=== PATIENT | male | born 1980 | race Asian ===

== ENCOUNTER 2017-07-02 15:35 | Inpatient (IN) | payer OTHER ==
[2017-07-02] MEDS ORDERED: NS 1,000 ML IV ONE (15:49)
[2017-07-02] MEDS ORDERED: ONDANSETRON 4 MG/2 ML VIAL IVP ONE (15:49)
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
[2017-07-02 16:02] LABS: % IMMATURE GRANULYOCYTES 0.5 % (0.0-1.1); ABSOLUTE IMMATURE GRANULOCYTES 0.06 10^3/uL (0.00-0.10); ADD DIFF? NO; ADD MORPH? NO; ADD SCAN? NO; ATYPICAL LYMPHOCYTE FLAG 0 (0-99); FRAGMENT RBC FLAG 0 (0-99); HEMATOCRIT 44.6 % (40.0-51.0); HEMOGLOBIN 15.1 g/dL (13.7-17.5); LEFT SHIFT FLG 0 (0-99); LIPEMIA HEMOLYSIS FLAG 90 (0-99); MEAN CELL HEMOGLOBIN CONCENTR. 33.9 g/dL (32.4-36.7); MEAN CELL VOLUME 85.8 fL (81.5-99.8); MEAN PLATELET VOLUME 9.5 fL (8.7-11.7); PLATELET CLUMPS FLAG 30 (0-99); PLATELET COUNT 263 10^3/uL (150-400); RED CELL DISTRIBUTION WIDTH 12.7 % (11.5-15.2)
[2017-07-02 16:11] LABS: APTT 25.2 SEC (23.0-38.0); INR 1.06 (0.83-1.16); PROTIME(PATIENT) 13.7 SEC (12.0-15.0)
[2017-07-02 16:12] LABS: ANION GAP 15 mEq/L (8-16); CALCIUM 10.1 mg/dL (8.5-10.4); CARBON DIOXIDE 22 mEq/l (22-31); CHLORIDE 99 mEq/L (97-110); CREATININE 1.2 mg/dL (0.7-1.3); ETHANOL SERUM < 10 mg/dL (0-10); GLOMERULAR FILTRATION RATE > 60; GLUCOSE 105 mg/dL (70-100); POTASSIUM 4.1 mEq/L (3.5-5.2); SODIUM 136 mEq/L (134-144)
[2017-07-02] MEDS ORDERED: ONDANSETRON 4 MG/2 ML VIAL IVP PRN (17:08)
[2017-07-02] MEDS ORDERED: NS 1,000 ML IV SCH (17:15)
[2017-07-02] MEDS ORDERED: LORATADINE PO PRN (17:19)
[2017-07-02] MEDS ORDERED: PSEUDOEPHEDRINE PO PRN (17:19)
[2017-07-02] MEDS ORDERED: NS 500 ML IV ONE (17:56)
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
[2017-07-02 19:02] LABS: COLOR YELLOW; LEUKOCYTE ESTERASE,URINE NEGATIVE (NEGATIVE); NITRITE,URINE NEGATIVE (NEGATIVE)
[2017-07-02] MEDS: BACITRACIN ZINC 14.2 GM OINTTUBE TP SCH (20:25)
[2017-07-02] MEDS: ACETAMINOPHEN 500 MG TAB PO SCH (20:25)
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
[2017-07-03] MEDS: ACETAMINOPHEN 500 MG TAB PO SCH ×3 (04:44→21:06)
[2017-07-03 04:55] LABS: % IMMATURE GRANULYOCYTES 0.3 % (0.0-1.1); ABSOLUTE IMMATURE GRANULOCYTES 0.02 10^3/uL (0.00-0.10); ADD DIFF? NO; ADD MORPH? NO; ADD SCAN? NO; ATYPICAL LYMPHOCYTE FLAG 0 (0-99); FRAGMENT RBC FLAG 0 (0-99); HEMATOCRIT 39.1 % (40.0-51.0); HEMOGLOBIN 13.5 g/dL (13.7-17.5); LEFT SHIFT FLG 0 (0-99); LIPEMIA HEMOLYSIS FLAG 90 (0-99); MEAN CELL HEMOGLOBIN 29.5 pg (27.9-34.1); MEAN CELL HEMOGLOBIN CONCENTR. 34.5 g/dL (32.4-36.7); MEAN CELL VOLUME 85.4 fL (81.5-99.8); MEAN PLATELET VOLUME 9.4 fL (8.7-11.7); PLATELET CLUMPS FLAG 0 (0-99); PLATELET COUNT 194 10^3/uL (150-400); RED BLOOD CELL COUNT 4.58 10^6/uL (4.40-6.38); RED CELL DISTRIBUTION WIDTH 13.1 % (11.5-15.2)
[2017-07-03 05:14] LABS: ANION GAP 11 mEq/L (8-16); CALCIUM 8.8 mg/dL (8.5-10.4); CARBON DIOXIDE 22 mEq/l (22-31); CHLORIDE 107 mEq/L (97-110); CREATININE 0.9 mg/dL (0.7-1.3); GLOMERULAR FILTRATION RATE > 60; GLUCOSE 94 mg/dL (70-100); POTASSIUM 3.9 mEq/L (3.5-5.2); SODIUM 140 mEq/L (134-144)
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
[2017-07-03] MEDS: BACITRACIN ZINC 14.2 GM OINTTUBE TP SCH ×2 (09:22→21:06)
[2017-07-03] MEDS ORDERED: GADOBUTROL 10 ML VIAL IVP ONE (21:50)
[2017-07-04] MEDS: ACETAMINOPHEN 500 MG TAB PO SCH ×2 (06:05→15:14)
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
[2017-07-04] MEDS ORDERED: ceFAZolin 2 GM in D5W 100 ML IV ONE ×2 (10:45→19:30)
[2017-07-04] MEDS: BACITRACIN ZINC 14.2 GM OINTTUBE TP SCH ×2 (11:16→20:19)
[2017-07-04] MEDS ORDERED: BUPIVACAINE 0.5% 30 ML SDV ONE (17:12)
[2017-07-04] MEDS ORDERED: CEFAZOLIN 2 GM/DEXTROSE/100 ML BAG IV ONE (17:53)
[2017-07-04] MEDS ORDERED: MIDAZOLAM 2 MG/2 ML VIAL ONE (18:09)
--- NOTE | 2017-07-04 18:12 | PDANEPAE ---
ANE History of Present Illness evacuation thigh hematoma ANE Past Medical History - Pulmonary History Hx Oxygen in Use at Home: No Hx Sleep Apnea: Yes Sleep Apnea Screening Result - Last Documented: Positive Pulmonary History Comment: farhat with cpap - Endocrine History Hx Diabetes: No - Chronic Pain History Chronic Pain: No ANE Review of Systems Review of Systems: - Exercise capacity Exercise capacity: >=4 METS ANE Patient History - Allergies Allergies/Adverse Reactions: No Known Allergies Allergy (Verified 07/02/17 17:10) - Home Medications Home Medications: Herbals/Supplements -Info Only 1 ea PO DAILY 07/02/17 [Last Taken Unknown] Loratadine/Pseudoephedrine [Claritin-D 24 Hour Tablet] 1 each PO HS PRN [Last Taken 07/01/17] - NPO status NPO Since - Liquids (Date): 07/04/17 NPO Since - Liquids (Time): 10:00 NPO Since - Solids (Date): 07/04/17 NPO Since - Solids (Time): 10:00 - Anes Hx Anes Hx: no prior problems - Smoking Hx Smoking Status: Never smoked - Alcohol Use Alcohol Use: Sober ANE Labs/Vital Signs - Labs Result Diagrams: 07/03/17 04:20 07/03/17 04:20 - Vital Signs Blood Pressure: 120/76 Heart Rate: 88 Respiratory Rate: 16 O2 Sat (%): 92 Height: 187.96 cm Weight: 93.8 kg ANE Physical Exam - Airway Neck exam: FROM Mallampati Score: Class 1 Mouth exam: normal dental/mouth exam - Pulmonary Pulmonary: no respiratory distress - Cardiovascular Cardiovascular: regular rate and rhythym - ASA Status ASA Status: II ANE Anesthesia Plan Anesthesia Plan: GA w LMA (r/b/a explained and pt. agrees)
[2017-07-04] MEDS ORDERED: LIDOCAINE 2% JELLY 5 ML TUBE ONE (18:22)
[2017-07-04] MEDS ORDERED: fentaNYL 100 MCG/2 ML INJ ONE (18:22)
[2017-07-04] MEDS ORDERED: ONDANSETRON 4 MG/2 ML VIAL ONE (18:22)
[2017-07-04] MEDS ORDERED: DEXAMETHASONE 4 MG/ML VIAL ONE (18:22)
[2017-07-04] MEDS ORDERED: PROPOFOL/EMULSION 500 MG/50 ML BOTTLE IV ONE (18:22)
[2017-07-04] MEDS ORDERED: LIDOCAINE 2% 100 MG/5 ML SYR ONE (18:22)
[2017-07-04] MEDS ORDERED: MIDAZOLAM 2 MG/2 ML VIAL IVP ONE (19:21)
[2017-07-04] MEDS ORDERED: ceFAZolin 2 GM/DEXTROSE 100 ML IV ONE (19:45)
--- NOTE | 2017-07-04 19:49 | POSTANESTH ---
Post Anesthetic Evaluation Cardiovascular Status: Normal, Stable Respiratory Status: Normal, Stable Level of Consciousness/Mental Status: Can Participate in Eval Pain Control: Adequate, Prn Tx Ordered Nausea/Vomiting Control: Adequate, Prn Tx Ordered Complications Possibly Related to Anesthesia: None Noted (will use CPAP tonight)
[2017-07-04] MEDS ORDERED: oxyCODONE IR 5 MG TAB PO PRN (19:51)
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
[2017-07-05 04:52] VITALS: RESP 14; TEMP 97.9
[2017-07-05 07:37] VITALS: BP 114/74; PULSE 76; O2SAT 90
[2017-07-05] MEDS: ACETAMINOPHEN 325 MG TAB PO PRN ×2 (09:15→13:54)
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
[2017-07-05] MEDS: BACITRACIN ZINC 14.2 GM OINTTUBE TP SCH (12:08)
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
== END 2017-07-05 17:40 | disposition home or self-care (01) | DRG 604 ==
LOC: F2N 19:39 → F3N 07-03 13:21 → OBSVTOIN 07-04 14:00
PROVIDERS: ADMIT Surgery; ATTEND Surgery
PROC: 0JCL0ZZ Extirpation of Matter from Right Upper Leg Subcutaneous Tissue and Fascia, Open Approach (ICD-10-PCS; principal; 2017-07-04 18:00)
DX: S71.101A Unspecified open wound, right thigh, initial encounter (principal); S06.369A Traumatic hemorrhage of cerebrum, unspecified, with loss of consciousness of unspecified duration, initial encounter; R40.2412 Glasgow coma scale score 13-15, at arrival to emergency department; G47.30 Sleep apnea, unspecified; J32.9 Chronic sinusitis, unspecified
CPT/HCPCS: 82947-QW; 92507-GN; 92523-GN; 97116-GP; 97161-GP; 97164-GP; 97166-GO; 97530-GO; 97530-GP; 97535-GO; A9585; G0378; G0480; J0690; J1100; J2001; J2250; J2405; J2704; J3010

== ENCOUNTER → 2017-07-20 | Outpatient (CLI) | payer OTHER | LOC: FIMAGING 14:48 | PROVIDERS: ATTEND Surgery | DX: M79.89 Other specified soft tissue disorders (principal) ==

== ENCOUNTER → 2017-07-29 | Outpatient (CLI) | payer OTHER | LOC: FIMAGING 09:56 | PROVIDERS: ATTEND Physician Assistant | DX: Z86.79 Personal history of other diseases of the circulatory system (principal) ==

== ENCOUNTER → 2018-08-12 | Outpatient (CLI) | payer OTHER ==
[~2018-08-12] MED LIST: GADOBUTROL 10 ML VIAL IVP ONE
== END ==
LOC: FIMAGING 07:07
PROVIDERS: ATTEND Physician Assistant
DX: S06.360A Traumatic hemorrhage of cerebrum, unspecified, without loss of consciousness, initial encounter (principal)
CPT/HCPCS: A9585